=== PATIENT | male | born 1950 | race African-American/Black ===

== ENCOUNTER 2020-08-10 07:57 | Emergency (ER) | payer MEDICARE, OTHER ==
[~2020-08-10] VITALS: Ht 188 cm; Wt 90.7 kg
--- NOTE | 2020-08-10 09:19 | Emergency Department Note ---
History of Present Illnes History of Present Illness Chief Complaint: General Medicine Complaints History of Present Illness This is a 69 year old male PATIENT FROM [facility], [facility], PATIENT HAD UNWITNESSED FALL APPROX 5 AM. PATIENT WITH QUESTIONABLE LOC, NO SWELLING OR BRUISING TO HEAD. PATIENT ALERT, AT BASELINE FOR HISTORY OF CVA. Historian: Patient, Restaurant Cook/EMS Arrival Mode: NATIONAL EMS Filter Press Tender Required: No Onset (how long ago): hour(s) Radiation: Reports non-radiation Severity: mild Onset quality: sudden Progression: resolved Chronicity: new Context: Reports trauma/injury; Denies recent illness Relieving factors: none Exacerbating factors: none Associated symptoms: Reports denies other symptoms Past Medical/Family History Physician Review I have reviewed the patient's past medical and family history. Any updates have been documented here. Past Medical History Recent Fever: No Clinical Suspicion of Infectio: No New/Unexplained Change in Ment: No Past Medical History: Hypertension, Diabetes, CVA, A-Fib, CAD, Seizure Disorder, Anxiety, Depression, GERD Past Surgical History: CABG Social History Smoking Cessation: Never Smoker Counseling Performed: No Alcohol Use: None Any Illegal Drug Use: No TB Exposure/Symptoms: No Physically hurt or threatened: No Family History Family history of heart diseas: No Other Any Pre-Existing Lines (PICC,: No Review of Systems Review of Systems Constitutional: Reports no symptoms EENTM: Reports no symptoms Cardiovascular: Reports no symptoms Respiratory: Reports no symptoms Gastrointestinal: Reports no symptoms Genitourinary: Reports no symptoms Musculoskeletal: Reports no symptoms Integumentary: Reports no symptoms Neurological: Reports no symptoms Psychological: Reports no symptoms Endocrine: Reports no symptoms Hematological/Lymphatic: Reports no symptoms Physical Exam Related Data Allergies: Coded Allergies: No Known Allergies (Unverified , 08/10/20) Triage Vital Signs Vital Signs Date Time Temp Pulse Resp B/P (MAP) Pulse Ox O2 Delivery O2 Flow Rate FiO2 08/10/20 07:57 98.0 63 18 126/53 100 Room Air Vital signs reviewed: Yes Physical Exam CONSTITUTIONAL Constitutional: Present well-developed, Present well-nourished HENT HENT: Present normocephalic, Present atraumatic, Present oropharynx clear/moist, Present nose normal HENT L/R: Present left ext ear normal, Present right ext ear normal EYES Eyes: Reports PERRL, Reports conjunctivae normal NECK Neck: Present ROM normal, Present supple, Present other (NO TENDERNESS) PULMONARY Pulmonary: Present effort normal, Present breath sounds normal CARDIOVASCULAR Cardiovascular: Present regular rhythm, Present heart sounds normal, Present capillary refill normal, Present normal rate GASTROINTESTINAL Abdominal: Present soft, Present nontender, Present bowel sounds normal GENITOURINARY Genitourinary: Present exam deferred SKIN Skin: Present warm, Present dry, Present other (0.5 CM SKIN TEAR/ABRASION TO RIGHT KNEE, NO TENDERNESS, FROM) MUSCULOSKELETAL Musculoskeletal: Present ROM normal NEUROLOGICAL Neurological: Present alert, Present no gross motor or sensory deficits, Present cranial nerve deficit (FACIAL DROOP (CHRONIC)) PSYCHOLOGICAL Psychological: Present mood/affect normal, Present judgement normal Results Imaging Imaging results reviewed: Yes Assessment & Plan Medical Decision Making MDM REPORTED FALL FROM MEDICAL RESORT, SENT FOR CT BRAIN - CHECK CT BRAIN CT C-SPINE - R/O CEREBRAL BLEED, CERV FX Reassessment Reassessment DC BACK TO MEDICAL RESORT Assessment & Plan Final Impression: (1) Fall Depart Disposition: HOME, SELF-CARE Last Vital Signs Date Time Temp Pulse Resp B/P (MAP) Pulse Ox O2 Delivery O2 Flow Rate FiO2 08/10/20 08:10 98.0 59 16 139/67 100 Room Air MARYSOL MENDOZA MD Aug 10, 2020 09:18
--- NOTE | 2020-08-10 09:30 | Diagnostic Imaging Report ---
EXAMINATION: Head and cervical spine CT without contrast. HISTORY: 69-year-old male status post, altered mental status, pain COMPARISON: None. TECHNIQUE: Multidetector axial images were obtained without contrast from the foramen magnum to the vertex and through the cervical spine. Dose modulation, iterative reconstruction, and/or weight based adjustment of the mA/kV was utilized to reduce the radiation dose to as low as reasonably achievable. HEAD CT FINDINGS: Skull/scalp: No lytic or blastic lesions. No fractures. Parenchyma: -Extensive encephalomalacia in the left posterior frontal, insular, temporal and inferior parietal lobes, with compensatory location of the left lateral ventricle and ipsilateral Wallerian degeneration and atrophy of the left cerebral peduncle, likely the sequela from remote infarct along the left MCA vascular distribution, involving the striato-capsular region as well. -Cortico-subcortical encephalomalacia in the right occipito-temporal cortex, likely the sequela from right watershed distribution chronic infarct (in between the right MCA and [employer] vascular territories) -Small cavitated encephalomalacia in the right posterior putamen, likely the sequela from remote hemorrhagic infarct. -Additional hypodense foci mainly in the left thalamus, likely chronic lacunar infarcts. -Scattered and mildly confluent periventricular hypodensities, most likely nonspecific chronic microvascular ischemic changes. -No mass, hemorrhage or CT evidence of acute cortical vascular insult. Brain volume: Normal for age. Ventricles: No hydrocephalus or displacement. Arteries: No density suggestive of thrombus. Dural sinuses: No abnormal density. Extra-axial spaces: No abnormal density. Foramen magnum: No mass, Chiari malformation, or basilar invagination. Sella: No obvious mass. Paranasal/mastoid sinuses: Likely chronic opacification of the left sphenoid sinus. There is also status sclerotic/thickened jefferson. The remaining paranasal sinuses are clear. Hypo pneumatization, sclerosis and partial opacification of the left director digital catalogue cells, likely related to chronic inflammatory process. CERVICAL SPINE CT FINDINGS: Alignment:Normal alignment and lordosis. Soft tissues: Normal. Vertebrae: Normal height and density. No acute fracture, infection or neoplasm. Degenerative changes: Prominent anterior bridging osteophytes from C3 to C7. Interbody fusion at C5-C6. Partial opacification of the posterior longitudinal ligament at C3. C1-C2: Chronic atlantodental degenerative changes without stenosis. C2-C3: Disc osteophyte complex formation and facet arthrosis on the right side. Moderate right foraminal narrowing and mild canal stenosis. C3-C4: Disc osteophyte compresses formation, bilateral uncovertebral and facet arthrosis. Moderate spinal canal and moderately severe bilateral foraminal stenosis. C4-C5: Disc osteophyte complex formation, bilateral uncovertebral and facet arthrosis. Mild spinal canal and moderate bilateral foraminal stenosis. C5-C6: Interbody fusion, uncovertebral and facet arthrosis. Mild bilateral foraminal stenosis. C6-C7: Disc osteophyte complex formation, bilateral uncovertebral and facet arthrosis. Mild canal narrowing. C7-T1: Disc osteophyte complex formation, uncovertebral and facet arthrosis. No significant stenosis. Incidental findings: Minimal irregularity of the right first rib, likely the sequela from remote trauma. IMPRESSION: Head CT: 1. No acute postraumatic intracranial hemorrhage. 2. Multiple chronic cortical and lacunar infarcts as detailed above. Cervical spine CT: 1. No acute fractures or dislocations. 2. Extensive chronic degenerative changes as described. Note: Acute post traumatic spinal cord, vascular or ligamentous injury cannot adequately be assessed with CT. Signed by: Dr. Leticia Camarena M.D. on 08/10/2020 9:27 AM
== END 2020-08-10 11:59 | disposition home or self-care (01) ==
LOC: ER 08:25
DX: S81.011A Laceration without foreign body, right knee, initial encounter (principal); S09.90XA Unspecified injury of head, initial encounter; W19.XXXA Unspecified fall, initial encounter; Y92.128 Other place in nursing home as the place of occurrence of the external cause; I10 Essential (primary) hypertension; E11.9 Type 2 diabetes mellitus without complications; I48.91 Unspecified atrial fibrillation; I25.10 Atherosclerotic heart disease of native coronary artery without angina pectoris; K21.9 Gastro-esophageal reflux disease without esophagitis; F41.9 Anxiety disorder, unspecified; G40.909 Epilepsy, unspecified, not intractable, without status epilepticus; Z95.1 Presence of aortocoronary bypass graft
CPT/HCPCS: 70450; 72125; 99284